=== PATIENT | male | born 1970 | race Caucasian/White ===

== ENCOUNTER → 2021-06-17 13:08 | Outpatient (CLI) | payer OTHER, MEDICAID, SELFPAY ==
[2021-06-17 19:06] LABS: Alanine Aminotransferase 54 IU/L (<50); Albumin 4.1 g/dL (3.5-5.0); Albumin Globulin Ratio 1.7 (1.0-2.8); Alkaline Phosphatase 90 U/L (38-126); Aspartate Aminotransferase 41 IU/L (17-59); BUN Creatinine Ratio 13.5 (6-22); Bilirubin Unconjugated 0.8 mg/dL (0.0-1.1); Blood Urea Nitrogen 19 mg/dL (9-20); Calcium 10.1 mg/dL (8.4-10.2); Carbon Dioxide 30 mmol/L (22-32); Chloride 102 mmol/L (98-107); Estimated Glomerular Filt Rate 52.6 mL/min (>60); Globulin 2.4 g/dL (1.7-4.1); Glucose 121 mg/dL (70-100); HEMOLYSIS < 15 (0-50); Potassium 4.4 mmol/L (3.4-5.1); Sodium 135 mmol/L (137-145); Total Protein 6.5 g/dL (6.3-8.2)
[2021-06-17 19:10] LABS: Add Manual Diff / Slide Review NO; Basophils Absolute Auto 0 /uL (0-100); Basophils Percent Auto 0.9 % (0-2); Eosinophils Absolute Auto 0 /uL (0-450); Eosinophils Percent Auto 1.3 % (2-4); Hematocrit 37.1 % (41-53); Hemoglobin 12.9 g/dL (13.5-17.5); Lymphocytes Absolute Auto 400 /uL (1100-4500); Lymphocytes Percent Auto 11.8 % (25-40); Mean Corpuscular HGB Conc 34.7 % (30-36); Mean Corpuscular Hemoglobin 36.2 PG (26-34); Mean Corpuscular Volume 104.1 fL (80-100); Monocytes Absolute Auto 600 /uL (0-900); Monocytes Percent Auto 17.2 % (3-14); Neutrophils Absolute Auto 2500 /uL (1500-7000); Neutrophils Percent Auto 68.8 % (50-75); Platelet Count 146 X10^3/uL (150-400); Red Blood Cell Count 3.57 X10^6/uL (4.5-5.9); Red Cell Distribution Width 13.5 % (11.6-14.8); White Blood Cell Count 3.6 X10^3/uL (4.5-11.0)
== END ==
PROVIDERS: PCP Physician Assistant Medical; Visit Provider Physician Assistant Medical
DX: C92.00 Acute myeloblastic leukemia, not having achieved remission (principal); D89.810 Acute graft-versus-host disease; T86.09 Other complications of bone marrow transplant
CPT/HCPCS: 80048; 80076; 85025

== ENCOUNTER → 2023-05-30 09:27 | Outpatient (CLI) | payer MEDICARE, MEDICAID, SELFPAY ==
[2023-05-30 20:06] LABS: Cholesterol 141 mg/dL (140-199); Glucose 96 mg/dL (70-100); HDL Cholesterol 42 mg/dL (40-60); LDL Cholesterol Calculated 73 mg/dL (<100); Triglycerides 131 mg/dL (35-150)
[2023-05-30 20:33] LABS: Prostate Specific Antigen Scrn 1.37 ng/mL (0.1-4.0)
[2023-06-01 17:43] LABS: Hep C Virus Ab w/Reflex Quant NEGATIVE s/c (NEGATIVE)
== END ==
PROVIDERS: PCP Family Medicine; Visit Provider Family Medicine
DX: Z12.5 Encounter for screening for malignant neoplasm of prostate (principal); E78.2 Mixed hyperlipidemia; Z13.1 Encounter for screening for diabetes mellitus; Z13.220 Encounter for screening for lipoid disorders; Z11.59 Encounter for screening for other viral diseases
CPT/HCPCS: 80061; 82947; 86803; G0103

== ENCOUNTER → 2023-09-06 10:48 | Outpatient (CLI) | payer MEDICARE, MEDICAID, SELFPAY ==
[2023-09-06 19:30] LABS: Hematocrit 40.9 % (41-53); Hemoglobin 13.9 g/dL (13.5-17.5); Mean Corpuscular HGB Conc 33.9 % (30-36); Mean Corpuscular Volume 91.5 fL (80-100); Platelet Count 160 X10^3/uL (150-400); Red Blood Cell Count 4.47 X10^6/uL (4.5-5.9); Red Cell Distribution Width 13.3 % (11.6-14.8); White Blood Cell Count 6.1 X10^3/uL (4.5-11.0)
[2023-09-06 19:46] LABS: Alanine Aminotransferase 21 IU/L (<50); Albumin 4.6 g/dL (3.5-5.0); Albumin Globulin Ratio 1.8 (1.0-2.8); Alkaline Phosphatase 81 U/L (38-126); Aspartate Aminotransferase 31 IU/L (17-59); Bilirubin Total 0.7 mg/dL (0.2-1.3); Blood Urea Nitrogen 25 mg/dL (9-20); Calcium 9.7 mg/dL (8.4-10.2); Carbon Dioxide 28 mmol/L (22-32); Chloride 102 mmol/L (98-107); Estimated Glomerular Filt Rate > 60 mL/min (>60); Globulin 2.5 g/dL (1.7-4.1); Glucose 96 mg/dL (70-100); HEMOLYSIS < 15 (0-50); Lactate Dehydrogenase 206 U/L (120-246); Potassium 4.7 mmol/L (3.4-5.1); Sodium 135 mmol/L (137-145); Total Protein 7.1 g/dL (6.3-8.2)
[2023-09-06 20:11] LABS: Neutrophils Absolute Manual 3843 /uL (3000-5900); RBC Morphology Normal Morphology; Total Cells Counted 100
== END ==
PROVIDERS: PCP Family Medicine; Visit Provider Physician Assistant
DX: Z20.7 Contact with and (suspected) exposure to pediculosis, acariasis and other infestations (principal); S30.860A Insect bite (nonvenomous) of lower back and pelvis, initial encounter; W57.XXXA Bitten or stung by nonvenomous insect and other nonvenomous arthropods, initial encounter
CPT/HCPCS: 80053; 83615; 85025; 86753; 87207

== ENCOUNTER → 2023-11-29 10:39 | Outpatient (CLI) | payer MEDICARE, MEDICAID, SELFPAY ==
[2023-11-29 20:28] LABS: Add Manual Diff / Slide Review NO; Basophils Absolute Auto 0 /uL (0-100); Basophils Percent Auto 0.4 % (0-2); Eosinophils Absolute Auto 200 /uL (0-450); Eosinophils Percent Auto 2.8 % (2-4); Hematocrit 40.9 % (41-53); Hemoglobin 13.8 g/dL (13.5-17.5); Lymphocytes Absolute Auto 1300 /uL (1100-4500); Lymphocytes Percent Auto 18.5 % (25-40); Mean Corpuscular HGB Conc 33.6 % (30-36); Mean Corpuscular Hemoglobin 30.8 PG (26-34); Mean Corpuscular Volume 91.7 fL (80-100); Monocytes Absolute Auto 600 /uL (0-900); Monocytes Percent Auto 8.8 % (3-14); Neutrophils Absolute Auto 4800 /uL (1500-7000); Neutrophils Percent Auto 69.5 % (50-75); Platelet Count 96 X10^3/uL (150-400); Red Blood Cell Count 4.46 X10^6/uL (4.5-5.9); Red Cell Distribution Width 13.8 % (11.6-14.8); White Blood Cell Count 6.9 X10^3/uL (4.5-11.0)
[2023-11-29 20:36] LABS: Alanine Aminotransferase 15 IU/L (<50); Albumin Globulin Ratio 1.6 (1.0-2.8); Alkaline Phosphatase 75 U/L (38-126); Aspartate Aminotransferase 27 IU/L (17-59); BUN Creatinine Ratio 23.1 (6-22); Bilirubin Total 0.8 mg/dL (0.2-1.3); Blood Urea Nitrogen 24 mg/dL (9-20); Calcium 9.3 mg/dL (8.4-10.2); Carbon Dioxide 29 mmol/L (22-32); Chloride 105 mmol/L (98-107); Estimated Glomerular Filt Rate > 60 mL/min (>60); Globulin 2.5 g/dL (1.7-4.1); Glucose 90 mg/dL (70-100); HEMOLYSIS < 15 (0-50); Potassium 4.1 mmol/L (3.4-5.1); Sodium 138 mmol/L (137-145); Total Protein 6.5 g/dL (6.3-8.2)
[2023-11-29 21:07] LABS: Ferritin 302 ng/mL (18-464)
[2023-11-29 22:00] LABS: TSH w/ Reflex to FT4 2.28 uIU/mL (0.47-4.68)
== END ==
PROVIDERS: PCP Family Medicine; Visit Provider Physician Assistant
DX: E83.19 Other disorders of iron metabolism (principal); R53.83 Other fatigue; R53.82 Chronic fatigue, unspecified; Z94.84 Stem cells transplant status
CPT/HCPCS: 80053; 82728; 84443; 85025

== ENCOUNTER 2024-08-07 13:38 | Emergency (ER) | payer MEDICARE, SELFPAY ==
[2024-08-07 13:41] VITALS: BP 127/84; PULSE 112; RESP 18; TEMP 36.4; O2SAT 98; BMI 30.7
[2024-08-07 14:22] LABS: Add Manual Diff / Slide Review NO; Basophils Absolute Auto 0 /uL (0-100); Basophils Percent Auto 0.3 % (0-2); Eosinophils Absolute Auto 100 /uL (0-450); Eosinophils Percent Auto 1.2 % (2-4); Hemoglobin 15.9 g/dL (13.5-17.5); Lymphocytes Absolute Auto 1700 /uL (1100-4500); Lymphocytes Percent Auto 18.7 % (25-40); Mean Corpuscular HGB Conc 34.5 % (30-36); Mean Corpuscular Hemoglobin 31.3 PG (26-34); Mean Corpuscular Volume 90.8 fL (80-100); Monocytes Absolute Auto 700 /uL (0-900); Monocytes Percent Auto 7.4 % (3-14); Neutrophils Absolute Auto 6400 /uL (1500-7000); Neutrophils Percent Auto 72.4 % (50-75); Platelet Count 124 X10^3/uL (150-400); Red Blood Cell Count 5.07 X10^6/uL (4.5-5.9); Red Cell Distribution Width 13.4 % (11.6-14.8); White Blood Cell Count 8.8 X10^3/uL (4.5-11.0)
[2024-08-07 14:24] LABS: Appearance Urine UA CLEAR; Bilirubin Urine UA NEGATIVE (NEGATIVE); Color Urine UA YELLOW; Glucose Urine UA NEGATIVE (Negative); Ketones Urine UA NEGATIVE (NEGATIVE); Leukocyte Esterase Urine UA NEGATIVE (NEGATIVE); Nitrite Urine UA NEGATIVE (Negative); Occult Blood Urine UA NEGATIVE (Negative); Protein Urine UA NEGATIVE (Negative); Urobilinogen Urine UA 0.2 E.U./dL (0.2)
[2024-08-07 14:26] LABS: Urine Volume 10mL (spun)
[2024-08-07 14:27] LABS: Bacteria Urine None Seen; Culture Indicated Urine Cult Not Indicated; RBC Urine None Seen (0-5/HPF); Squamous Epithelial Cell Urine None Seen (0-5/HPF); Ur Creatinine Normal (Normal); Ur Specific Gravity Normal (Normal); Urine Cocaine Negative (Negative); Urine Tetrahydrocannabinol Positive (Negative); Urine pH Normal (Normal); WBC Urine None Seen (0-5/HPF)
[2024-08-07 14:28] LABS: UR Morphine/Opiate cutoff 300 Negative (Negative); Urine Amphetamines Negative (Negative); Urine Barbiturates Negative (Negative); Urine Benzodiazepines Negative (Negative); Urine MDMA Negative (Negative); Urine Methadone Negative (Negative); Urine Methamphetamines Negative (Negative); Urine Oxycodone Negative (Negative); Urine Phencyclidine Negative (Negative); Urine Tricyclic Antidepressant Negative (Negative)
[2024-08-07 14:31] LABS: COVID19 -Nasal RAPID Negative (Negative)
[2024-08-07 14:36] LABS: Acetaminophen < 10 ug/mL (10-30); Alanine Aminotransferase 69 IU/L (<50); Albumin 4.6 g/dL (3.5-5.0); Albumin Globulin Ratio 1.6 (1.0-2.8); Alkaline Phosphatase 66 U/L (38-126); Aspartate Aminotransferase 31 IU/L (17-59); BUN Creatinine Ratio 20.8 (6-22); Bilirubin Total 0.6 mg/dL (0.2-1.3); Blood Urea Nitrogen 27 mg/dL (9-20); Carbon Dioxide 30 mmol/L (22-32); Chloride 100 mmol/L (98-107); Estimated Glomerular Filt Rate > 60 mL/min (>60); Ethanol (ETOH) < 10 mg/dL; Globulin 2.9 g/dL (1.7-4.1); Glucose 116 mg/dL (70-100); HEMOLYSIS < 15 (0-50); Potassium 4.6 mmol/L (3.4-5.1); Salicylate < 1.0 mg/dL (<20); Sodium 138 mmol/L (137-145); Total Protein 7.5 g/dL (6.3-8.2)
--- NOTE | 2024-08-07 14:41 | PC.NURSE ---
Addendum entered by Leena Bajwa R.N. 08/07/24 15:03: Pt hx inguinal hernia repair at and dc 08/05/2024. Steristrips placed on incision. Dressing clean, dry & intact w/slight yellowish bruising normal for stage of healing. Original Note: Pt states that he has been having frequent thoughts of SI w/vague plan. States he has access to firearms at home and he would use his gun to shoot himself or he would get him by a car. Has hx of depression and anxiety with previous episodes of SI without attempted suicide. Denies any HI and visual/audio hallucinations. Pt a&ox4.
[2024-08-07 15:06] LABS: Free T4, Direct Thyroxine 1.25 ng/dL (0.78-2.19)
--- NOTE | 2024-08-07 15:19 | CM.SWNOTE ---
ED WEB SITE MANAGER Assessment WEB SITE MANAGER - Consumer Affairs Specialist Assessment WEB SITE MANAGER/Consumer Affairs Specialist Assessment Time Spent with Patient Start date 08/07/24 Visit Start Time 14:35 End date 08/07/24 Visit End Time 14:45 Total time Care Management spent on 15 minutes patient visit-in minutes Mental Health Screening Include Onset, Duration, Intensity Presenting Problem Patient presents to the ED via friend's POV due to concern for increase in SI with thoughts of plan over the last several days. Patient resides alone, owns a gun and has thoughts of shooting himself or walking in front of a truck . Patient states he does not feel safe being alone. Patient presents voluntarily seeking inpatient placement. Patient endorses concern for Depression over the last several months. Precipitating Event(s) Patient had a right inguinal hernia surgery at on Monday , returned home on Monday and has been having SI with thoughts of plans upon his return home. Patient endorses he hasn't been able to sleep well, he endorses that he has been up most of the night with thoughts of SI or disturbed sleep. Patient states I have been spiraling since I got home. Patient states that managing self care and ADLs has been a challenge due to concern for his current mental state. Per RN, patient's incision spot is clean and dry with steri strips and patient has f /u appt at in [place] on 08/16/24. Patient Strengths Patient has support from friends, daughter and neighbors. Patient is seeking help. Current Behavioral Health Provider(s) Patient denies current MH Include Facility, Provider, Ph. # provider, patient is interested in seeking MH provider but it has been difficult to find. Patient endorses hx of seeing a therapist. Psych. Hx Mental Health and Chemical Patient endorses hx of SI, Dependency Depression and Anxiety. Patient endorses Marijuana use , patient denies any other substance use. Patient's tox screen is positive for Marijuana. Patient denies any current rx for his MH, patient is open to this at this time. Family Hx of Behavioral Abuse None reported Psychiatric Hospitalizations (date(s)/ Patient states he was location) voluntarily hospitalized at [facility] in 2020 after a bone marrow transplant. Patient endorses he experienced SI with thoughts of jumping off of a bridge. Psychosocial information & Support Patient is 54 y/o male who Systems resides alone on [facility]. Patient endorses that he has support from local friends, neighbors and his daughter who resides in [place]. School/Work Patient is unemployed. Legal Concerns Legal Matters - Outstanding Issues None reported Mental Status Orientation (Person/Place/Time) A/Ox4 Stated Mood Depressed Affect (Congruent with Mood?) flat, dysthymic, congruent with mood Thought Content - Specify/Describe Patient denies visual or Obsessions, Delusions, Hallucinations auditory hallucinations. Patient denies concern for paranoia. Patient endorses concern for his safety being alone. Thought Processes (Gbkvywu-Pkmcwpht-Zegp coherent Booginfd-Erggvvug-Wzlucgaaee- Hdbpdsdtuggstm-Ltkwfso-Ricjookqyqwg- Thought Blocking) Speech (Mbymrg-Eosq-Mtobsye-Rapid-Soft- normal Loud-Pressured) Motor (Kvccil-Soldsdnmq-Qzrh-Other) normal Insight (Wfpe-Mhdg-Bios/Limited) fair Judgement (Xmpx-Cvpb-Dvab/Limited) fair Impulse Control (Adequate-Impaired) adequate during assessment Memory (Dgjizmymo-Cxtohe-Miwulv, intact, not formally assessed Impaired-Intact) Concentration (Intact-Impaired) intact Attention (Intact-Impaired) intact Behavior (Appropriate-Inappropriate) appropriate Additional Comment Patient presents as calm, cooperative and communicative. Risk Assessment Suicidal Ideation (Plan) Yes Homicidal Ideation (Plan) No Comment Patient endorses increase of SI with thoughts of plans in recent days. Patient endorses concern for his depression over the last several months. Patient endorses he has access to fire arms at home and endorses thoughts of shooting himself or walking in front of a truck. Patient endorses hx of SI with thoughts of jumping off a bridge. Patient denies hx of attempts. Intervention Intervention WEB SITE MANAGER enters room to meet with patient. Patient endorses concern for his SI with thoughts of plans and depression. Patient endorses he is seeking voluntary inpatient hospitalization. Patient endorses he has not been sleeping well and his daily functioning has been impacted by his SI. It is the opinion of this WEB SITE MANAGER that patient will benefit from and is appropriate for voluntary inpatient hospitalization for safety, crisis stabilization and medication management. WEB SITE MANAGER reviews this with ED provider Dr. Ibarra who indicates agreement and understanding. Plan RA Plan WEB SITE MANAGER to seek voluntary inpatient placement upon medical clearance. Felicia Reddy, DIVISION CHAIR
[2024-08-07 15:20] LABS: Thyroid Stimulating Hormone 1.62 uIU/mL (0.47-4.68)
--- NOTE | 2024-08-07 15:38 | ED_ITS ---
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 Reports that he has had suicidal thoughts in the past. Last time was when he had wwpup-brmqid-plmw disease and was in severe pain he was admitted to [facility] and psychiatric evaluation. He did not want medication at the time. Now reports that he thinks he had a manic episode last year and spent all of his savings money. He now recently had a right inguinal hernia repair at [facility] about 5 days ago. He reports that that is actually going well. No significant pain. He was taken to oxycodone. He has been having bowel movements no fevers generally doing well. But the last 2 days has had increasing suicidal thoughts and has guns at home and thought that he might shoot himself. Related Data Home Medications Medication Instructions Recorded Confirmed cholecalciferol (vitamin D3) 25 25 mcg PO DAILY 03/15/22 10/03/23 mcg (1,000 unit) tablet cyanocobalamin (vitamin B-12) 1,000 mcg PO DAILY 03/15/22 10/03/23 1,000 mcg tablet sennosides 8.6 mg tablet (senna) 8.6 mg PO ONCE PRN 03/15/22 10/03/23 Allergies Allergy/AdvReac Type Severity Reaction Status Date / Time No Known Drug Allergies Allergy Verified 10/03/23 13:33 Patient History <Romina Ibarra DO - Last Filed: 08/08/24 07:36> Surgical History History of thoracotomy S/P partial lobectomy of lung H/O peripheral stem cell transplant Social History marital status: unmarried,single household members: none lives independently: Yes occupational status: employed Smoking Status: Never smoker alcohol intake: current substance use type: marijuana Smoking Status: Never smoker Exam <Romina Ibarra DO - Last Filed: 08/08/24 07:36> Initial Vital Signs Initial Vital Signs: Vital Signs Temperature 97.6 F 08/07/24 13:41 Pulse Rate 112 H 08/07/24 13:41 Respiratory Rate 18 08/07/24 13:41 Blood Pressure 127/84 08/07/24 13:41 Pulse Oximetry 98 08/07/24 13:41 Oxygen Delivery Method Room Air 08/07/24 13:41 GENERAL: Tearful appropriate CARDIOVASCULAR: peripheral pulses in tact, cap refill <2 sec RESPIRATORY: No respiratory distress, speaks in full sentences without difficulty ABDOMEN: Soft, nontender, no guarding or rebound your right inguinal incision Steri-Strips in place no erythema EXTREMITIES: Normal range of motion, no clubbing or edema. Neurovascularly intact NEUROLOGICAL: Cranial nerves II through XII grossly intact. Normal gait and speech. SKIN: Warm, dry, no petechiae, no rashes or lesions. <Eren Caballero DO - Last Filed: 08/07/24 20:43> Initial Vital Signs Initial Vital Signs: Vital Signs Temperature 97.6 F 08/07/24 13:41 Pulse Rate 112 H 08/07/24 13:41 Respiratory Rate 18 08/07/24 13:41 Blood Pressure 127/84 08/07/24 13:41 Pulse Oximetry 98 08/07/24 13:41 Oxygen Delivery Method Room Air 08/07/24 13:41 Course <Romina Ibarra, DO - Last Filed: 08/08/24 07:36> Orders Ordered: Discontinued Medications Lorazepam (Lorazepam 2 Mg/Ml Inj) 1 mg IV NOW ONE Stop: 08/07/24 19:16 Last Admin: 08/07/24 19:37 Dose: Not Given Documented By: GAVI Lorazepam (Lorazepam 0.5 Mg Tablet) 1 mg PO NOW ONE Stop: 08/07/24 19:18 Last Admin: 08/07/24 19:20 Dose: 1 mg Documented By: GAVI Vital Signs Vital signs: Vital Signs - 8 hr 08/07/24 13:41 08/07/24 19:52 Temperature 97.6 F Pulse Rate 112 H 65 Respiratory Rate 18 16 Blood Pressure 127/84 108/62 Pulse Oximetry 98 98 Oxygen Delivery Method Room Air Room Air <Eren Caballero DO - Last Filed: 08/07/24 20:43> Orders Ordered: Discontinued Medications Lorazepam (Lorazepam 2 Mg/Ml Inj) 1 mg IV NOW ONE Stop: 08/07/24 19:16 Last Admin: 08/07/24 19:37 Dose: Not Given Documented By: GAVI Lorazepam (Lorazepam 0.5 Mg Tablet) 1 mg PO NOW ONE Stop: 08/07/24 19:18 Last Admin: 08/07/24 19:20 Dose: 1 mg Documented By: GAVI Vital Signs Vital signs: Vital Signs - 8 hr 08/07/24 13:41 08/07/24 19:52 Temperature 97.6 F Pulse Rate 112 H 65 Respiratory Rate 18 16 Blood Pressure 127/84 108/62 Pulse Oximetry 98 98 Oxygen Delivery Method Room Air Room Air MDM - Psych <Romina Ibarra DO - Last Filed: 08/08/24 07:36> Lab Data 08/07/24 14:11 08/07/24 14:11 Labs: Lab Results 08/07/24 08/07/24 08/07/24 Range/Units 14:02 14:11 14:14 WBC 8.8 (4.5-11.0) X10^3/uL RBC 5.07 (4.5-5.9) X10^6/uL Hgb 15.9 (13.5-17.5) g/dL Hct 46.0 (41-53) % MCV 90.8 (80-100) fL MCH 31.3 (26-34) PG MCHC 34.5 (30-36) % RDW 13.4 (11.6-14.8) % Plt Count 124 L (150-400) X10^3/uL Neut % (Auto) 72.4 (50-75) % Lymph % (Auto) 18.7 L (25-40) % [place] % (Auto) 7.4 (3-14) % Eos % (Auto) 1.2 L (2-4) % Baso % (Auto) 0.3 (0-2) % Neut # (Auto) 6400 (1471-2400) /uL Lymph # (Auto) 1700 (1991-1174) /uL [place] # (Auto) 700 (0-900) /uL Eos # (Auto) 100 (0-450) /uL Baso # (Auto) 0 (0-100) /uL Sodium 138 (137-145) mmol/L Potassium 4.6 (3.4-5.1) mmol/L Chloride 100 (98-107) mmol/L Carbon Dioxide 30 (22-32) mmol/L BUN 27 H (9-20) mg/dL Creatinine 1.30 H (0.66-1.25) mg/dL Estimated GFR > 60 (>60) mL/min BUN/Creatinine Ratio 20.8 (6-22) Glucose 116 H (70-100) mg/dL Calcium 10.0 (8.4-10.2) mg/dL Total Bilirubin 0.6 (0.2-1.3) mg/dL AST 31 (17-59) IU/L ALT 69 H (<50) IU/L Alkaline Phosphatase 66 (38-126) U/L Total Protein 7.5 (6.3-8.2) g/dL Albumin 4.6 (3.5-5.0) g/dL Globulin 2.9 (1.7-4.1) g/dL Albumin/Globulin Ratio 1.6 (1.0-2.8) TSH 1.62 (0.47-4.68) uIU/mL Free T4 1.25 (0.78-2.19) ng/dL Urine Color Yellow Urine Appearance Clear Urine pH 6.0 (4.5-8.0) Ur Specific [place] 1.020 (1.000-1.035) Urine Protein Negative (Negative) Urine Glucose (UA) Negative (Negative) g/dL Urine Ketones Negative (NEGATIVE) Urine Occult Blood Negative (Negative) Urine Nitrate Negative (Negative) Urine Bilirubin Negative (NEGATIVE) Urine Urobilinogen 0.2 (0.2) E.U./dL Ur Leukocyte Esterase Negative (NEGATIVE) Urine RBC None seen (0-5/HPF) Urine WBC None seen (0-5/HPF) Ur Squamous Epith Cells None seen (0-5/HPF) Urine Bacteria None seen (None) Ur Culture Indicated? Cult not indicated Vol Urine Centrifuged 10ml (spun) Salicylates < 1.0 (<20) mg/dL U Opiates 300ng/mL cut Negative (Negative) Ur Oxycodone Screen Negative (Negative) Urine Methadone Screen Negative (Negative) Acetaminophen < 10 (10-30) ug/mL Ur Barbiturates Screen Negative (Negative) U Tricyclic Antidepress Negative (Negative) Ur Phencyclidine Scrn Negative (Negative) Ur Amphetamines Screen Negative (Negative) U Methamphetamines Scrn Negative (Negative) Ur MDMA Scrn (Ecstasy) Negative (Negative) U Benzodiazepines Scrn Negative (Negative) Urine Cocaine Screen Negative (Negative) U Marijuana (THC) Screen Positive H (Negative) Urine Specific [place] (Normal) Ethyl Alcohol < 10 ( - 10) mg/dL Ur Creatinine (Normal) SARS-CoV-2 (PCR) Negative (Negative) 08/07/24 Range/Units 14:14 WBC (4.5-11.0) X10^3/uL RBC (4.5-5.9) X10^6/uL Hgb (13.5-17.5) g/dL Hct (41-53) % MCV (80-100) fL MCH (26-34) PG MCHC (30-36) % RDW (11.6-14.8) % Plt Count (150-400) X10^3/uL Neut % (Auto) (50-75) % Lymph % (Auto) (25-40) % [place] % (Auto) (3-14) % Eos % (Auto) (2-4) % Baso % (Auto) (0-2) % Neut # (Auto) (7371-7406) /uL Lymph # (Auto) (0313-0218) /uL [place] # (Auto) (0-900) /uL Eos # (Auto) (0-450) /uL Baso # (Auto) (0-100) /uL Sodium (137-145) mmol/L Potassium (3.4-5.1) mmol/L Chloride (98-107) mmol/L Carbon Dioxide (22-32) mmol/L BUN (9-20) mg/dL Creatinine (0.66-1.25) mg/dL Estimated GFR (>60) mL/min BUN/Creatinine Ratio (6-22) Glucose (70-100) mg/dL Calcium (8.4-10.2) mg/dL Total Bilirubin (0.2-1.3) mg/dL AST (17-59) IU/L ALT (<50) IU/L Alkaline Phosphatase (38-126) U/L Total Protein (6.3-8.2) g/dL Albumin (3.5-5.0) g/dL Globulin (1.7-4.1) g/dL Albumin/Globulin Ratio (1.0-2.8) TSH (0.47-4.68) uIU/mL Free T4 (0.78-2.19) ng/dL Urine Color Urine Appearance Urine pH Normal (4.5-8.0) Ur Specific [place] (1.000-1.035) Urine Protein (Negative) Urine Glucose (UA) (Negative) g/dL Urine Ketones (NEGATIVE) Urine Occult Blood (Negative) Urine Nitrate (Negative) Urine Bilirubin (NEGATIVE) Urine Urobilinogen (0.2) E.U./dL Ur Leukocyte Esterase (NEGATIVE) Urine RBC (0-5/HPF) Urine WBC (0-5/HPF) Ur Squamous Epith Cells (0-5/HPF) Urine Bacteria (None) Ur Culture Indicated? Vol Urine Centrifuged Salicylates (<20) mg/dL U Opiates 300ng/mL cut (Negative) Ur Oxycodone Screen (Negative) Urine Methadone Screen (Negative) Acetaminophen (10-30) ug/mL Ur Barbiturates Screen (Negative) U Tricyclic Antidepress (Negative) Ur Phencyclidine Scrn (Negative) Ur Amphetamines Screen (Negative) U Methamphetamines Scrn (Negative) Ur MDMA Scrn (Ecstasy) (Negative) U Benzodiazepines Scrn (Negative) Urine Cocaine Screen (Negative) U Marijuana (THC) Screen (Negative) Urine Specific [place] Normal (Normal) Ethyl Alcohol ( - 10) mg/dL Ur Creatinine Normal (Normal) SARS-CoV-2 (PCR) (Negative) MDM Narrative Medical decision making narrative: Patient 54-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 Reports that he has had thoughts of killing himself with a gun but was able to come to the ER today instead. He did recently have elective right inguinal hernia repair. It does not appear to be any complications it is not erythematous he was having bowel movements. Blood work has been reviewed overall reassuring no leukocytosis or anemia. Evaluated by social work appropriate for voluntary placement <Eren Caballero, - Last Filed: 08/07/24 20:43> Lab Data Labs: Lab Results 08/07/24 08/07/24 08/07/24 Range/Units 14:02 14:11 14:14 WBC 8.8 (4.5-11.0) X10^3/uL RBC 5.07 (4.5-5.9) X10^6/uL Hgb 15.9 (13.5-17.5) g/dL Hct 46.0 (41-53) % MCV 90.8 (80-100) fL MCH 31.3 (26-34) PG MCHC 34.5 (30-36) % RDW 13.4 (11.6-14.8) % Plt Count 124 L (150-400) X10^3/uL Neut % (Auto) 72.4 (50-75) % Lymph % (Auto) 18.7 L (25-40) % [place] % (Auto) 7.4 (3-14) % Eos % (Auto) 1.2 L (2-4) % Baso % (Auto) 0.3 (0-2) % Neut # (Auto) 6400 (2037-1832) /uL Lymph # (Auto) 1700 (4989-7857) /uL [place] # (Auto) 700 (0-900) /uL Eos # (Auto) 100 (0-450) /uL Baso # (Auto) 0 (0-100) /uL Sodium 138 (137-145) mmol/L Potassium 4.6 (3.4-5.1) mmol/L Chloride 100 (98-107) mmol/L Carbon Dioxide 30 (22-32) mmol/L BUN 27 H (9-20) mg/dL Creatinine 1.30 H (0.66-1.25) mg/dL Estimated GFR > 60 (>60) mL/min BUN/Creatinine Ratio 20.8 (6-22) Glucose 116 H (70-100) mg/dL Calcium 10.0 (8.4-10.2) mg/dL Total Bilirubin 0.6 (0.2-1.3) mg/dL AST 31 (17-59) IU/L ALT 69 H (<50) IU/L Alkaline Phosphatase 66 (38-126) U/L Total Protein 7.5 (6.3-8.2) g/dL Albumin 4.6 (3.5-5.0) g/dL Globulin 2.9 (1.7-4.1) g/dL Albumin/Globulin Ratio 1.6 (1.0-2.8) TSH 1.62 (0.47-4.68) uIU/mL Free T4 1.25 (0.78-2.19) ng/dL Urine Color Yellow Urine Appearance Clear Urine pH 6.0 (4.5-8.0) Ur Specific [place] 1.020 (1.000-1.035) Urine Protein Negative (Negative) Urine Glucose (UA) Negative (Negative) g/dL Urine Ketones Negative (NEGATIVE) Urine Occult Blood Negative (Negative) Urine Nitrate Negative (Negative) Urine Bilirubin Negative (NEGATIVE) Urine Urobilinogen 0.2 (0.2) E.U./dL Ur Leukocyte Esterase Negative (NEGATIVE) Urine RBC None seen (0-5/HPF) Urine WBC None seen (0-5/HPF) Ur Squamous Epith Cells None seen (0-5/HPF) Urine Bacteria None seen (None) Ur Culture Indicated? Cult not indicated Vol Urine Centrifuged 10ml (spun) Salicylates < 1.0 (<20) mg/dL U Opiates 300ng/mL cut Negative (Negative) Ur Oxycodone Screen Negative (Negative) Urine Methadone Screen Negative (Negative) Acetaminophen < 10 (10-30) ug/mL Ur Barbiturates Screen Negative (Negative) U Tricyclic Antidepress Negative (Negative) Ur Phencyclidine Scrn Negative (Negative) Ur Amphetamines Screen Negative (Negative) U Methamphetamines Scrn Negative (Negative) Ur MDMA Scrn (Ecstasy) Negative (Negative) U Benzodiazepines Scrn Negative (Negative) Urine Cocaine Screen Negative (Negative) U Marijuana (THC) Screen Positive H (Negative) Urine Specific [place] (Normal) Ethyl Alcohol < 10 ( - 10) mg/dL Ur Creatinine (Normal) SARS-CoV-2 (PCR) Negative (Negative) 08/07/24 Range/Units 14:14 WBC (4.5-11.0) X10^3/uL RBC (4.5-5.9) X10^6/uL Hgb (13.5-17.5) g/dL Hct (41-53) % MCV (80-100) fL MCH (26-34) PG MCHC (30-36) % RDW (11.6-14.8) % Plt Count (150-400) X10^3/uL Neut % (Auto) (50-75) % Lymph % (Auto) (25-40) % [place] % (Auto) (3-14) % Eos % (Auto) (2-4) % Baso % (Auto) (0-2) % Neut # (Auto) (0316-0661) /uL Lymph # (Auto) (6086-1859) /uL [place] # (Auto) (0-900) /uL Eos # (Auto) (0-450) /uL Baso # (Auto) (0-100) /uL Sodium (137-145) mmol/L Potassium (3.4-5.1) mmol/L Chloride (98-107) mmol/L Carbon Dioxide (22-32) mmol/L BUN (9-20) mg/dL Creatinine (0.66-1.25) mg/dL Estimated GFR (>60) mL/min BUN/Creatinine Ratio (6-22) Glucose (70-100) mg/dL Calcium (8.4-10.2) mg/dL Total Bilirubin (0.2-1.3) mg/dL AST (17-59) IU/L ALT (<50) IU/L Alkaline Phosphatase (38-126) U/L Total Protein (6.3-8.2) g/dL Albumin (3.5-5.0) g/dL Globulin (1.7-4.1) g/dL Albumin/Globulin Ratio (1.0-2.8) TSH (0.47-4.68) uIU/mL Free T4 (0.78-2.19) ng/dL Urine Color Urine Appearance Urine pH Normal (4.5-8.0) Ur Specific [place] (1.000-1.035) Urine Protein (Negative) Urine Glucose (UA) (Negative) g/dL Urine Ketones (NEGATIVE) Urine Occult Blood (Negative) Urine Nitrate (Negative) Urine Bilirubin (NEGATIVE) Urine Urobilinogen (0.2) E.U./dL Ur Leukocyte Esterase (NEGATIVE) Urine RBC (0-5/HPF) Urine WBC (0-5/HPF) Ur Squamous Epith Cells (0-5/HPF) Urine Bacteria (None) Ur Culture Indicated? Vol Urine Centrifuged Salicylates (<20) mg/dL U Opiates 300ng/mL cut (Negative) Ur Oxycodone Screen (Negative) Urine Methadone Screen (Negative) Acetaminophen (10-30) ug/mL Ur Barbiturates Screen (Negative) U Tricyclic Antidepress (Negative) Ur Phencyclidine Scrn (Negative) Ur Amphetamines Screen (Negative) U Methamphetamines Scrn (Negative) Ur MDMA Scrn (Ecstasy) (Negative) U Benzodiazepines Scrn (Negative) Urine Cocaine Screen (Negative) U Marijuana (THC) Screen (Negative) Urine Specific [place] Normal (Normal) Ethyl Alcohol ( - 10) mg/dL Ur Creatinine Normal (Normal) SARS-CoV-2 (PCR) (Negative) MDM Narrative Medical decision making narrative: Patient 54-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 Reports that he has had thoughts of killing himself with a gun but was able to come to the ER today instead. He did recently have elective right inguinal hernia repair. It does not appear to be any complications it is not erythematous he was having bowel movements. Blood work has been reviewed overall reassuring no leukocytosis or anemia. Evaluated by social work appropriate for voluntary placement Patient has been accepted to [facility] for psychiatry inpatient. Discharge Plan Departure Patient Disposition: Xfer Psychiatric Hosp Clinical Impression: Suicide ideation Prescriptions: No Action cyanocobalamin (vitamin B-12) 1,000 mcg tablet 1,000 mcg PO DAILY Rx Instructions: Take 1 tablet by mouth daily. cholecalciferol (vitamin D3) 25 mcg (1,000 unit) tablet 25 mcg PO DAILY Rx Instructions: Take 2 tablets (2,000 Units) by mouth daily. (Patient not taking: Reported on 02/04/2022) sennosides [senna] 8.6 mg tablet 8.6 mg PO ONCE PRN Referrals: Otis Zafar MD [Primary Care Provider] -
--- NOTE | 2024-08-07 17:30 | CM.SWNOTE ---
ED ED MANAGER Note ED MANAGER observes patient speak with ED provider and he reports that he has a family hx of suicidal ideation. Patient reported that he doesn't want to kill himself but he is worried he will act on SI. Patient endorses hx of manic episode last year when he spent his savings, patient denies formal dx of Bipolar. ED MANAGER calls [facility], per patient initial request to be close to daughter, it is reported they do not have beds. ED MANAGER calls [facility], it is reported that they have beds and can review patient. ED MANAGER faxes clinicals for review. [facility] intake Jessica calls and states that patient is accepted by Dr. Jay Stevens. ETA is [phone], Rn-RN is [phone]. ED MANAGER informs patient of this and he indicates agreement and understanding. Patient has been making calls to loved ones regarding plan of care. ED MANAGER calls [facility] and schedules transport for 1950 machine operator picker time. ED MANAGER calls [facility] regarding this. Plan: patient to transport to [facility] for voluntary inpatient hospitalization via BLS this evening. Felicia Reddy, DOOR FRAME BUILDER
[2024-08-07] MEDS: LORazepam 0.5 MG TABLET 1 MG PO (19:20)
[2024-08-07 19:52] VITALS: BP 108/62; PULSE 65; RESP 16; O2SAT 98
== END 2024-08-07 20:00 ==
PROVIDERS: Emergency Medicine; Emergency Provider Student in an Organized Health Care Education/Training Program; PCP Family Medicine
DX: R45.851 Suicidal ideations (principal)
CPT/HCPCS: 80053; 80305; 80320; 80329; 81001; 84439; 84443; 85025; 87635; 99284; G0480